=== PATIENT | male | born 1975 | race Caucasian/White ===

== ENCOUNTER 2017-11-08 08:37 | Emergency (ER) | payer OTHER ==
[2017-11-08 08:37] VITALS: BMI 27.4
[2017-11-08 08:46] VITALS: RESP 18
[2017-11-08] MEDS ORDERED: Naproxen 550 mg Tab PO STA (09:29)
[2017-11-08] MEDS ORDERED: Naproxen 550 mg Tab PO ONE (09:33)
--- NOTE | 2017-11-08 10:05 | C.PDOC ---
History Of Present Illness 42 y/o male presents to the ED c/o nonproductive cough, runny nose, upper back pain for 2-3 days. The patient states that last night he took Advil for relief last night. The patient denies fever, sore throat, ear and abdominal pain. Time Seen by Provider: 11/08/17 09:13 Chief Complaint (Nursing): Flu-like Symptoms History Per: Patient History/Exam Limitations: no limitations Onset/Duration Of Symptoms: Days Current Symptoms Are (Timing): Still Present Associated Symptoms: Cough (nonproductive). denies: Fever, Sore Throat, Vomiting, Diarrhea Additional History Per: Patient Past Medical History Reviewed: Historical Data, Nursing Documentation, Vital Signs Vital Signs: Last Vital Signs Temp 97.9 F 11/08/17 10:10 Pulse 88 11/08/17 10:10 Resp 18 11/08/17 10:10 BP 126/74 11/08/17 10:10 Pulse Ox 97 11/08/17 10:50 Surgical History: Appendectomy Family History: States: No Known Family Hx - Social History Hx Tobacco Use: No Hx Alcohol Use: Yes Hx Substance Use: No - Immunization History Hx Tetanus Toxoid Vaccination: No Hx Influenza Vaccination: No Hx Pneumococcal Vaccination: No Review Of Systems Except As Marked, All Systems Reviewed And Found Negative. Constitutional: Negative for: Fever ENT: Positive for: Nose Discharge. Negative for: Ear Pain, Throat Pain Cardiovascular: Negative for: Chest Pain Respiratory: Positive for: Cough. Negative for: Shortness of Breath Gastrointestinal: Negative for: Nausea, Abdominal Pain, Diarrhea Musculoskeletal: Positive for: Back Pain (upper ). Negative for: Neck Pain Skin: Negative for: Rash Physical Exam - Physical Exam Appears: Non-toxic, No Acute Distress Skin: Warm, Dry Head: Atraumatic, Normacephalic Eye(s): bilateral: Normal Inspection Ear(s): Bilateral: Normal Oral Mucosa: Moist Throat: No Erythema Neck: Supple Chest: Symmetrical Cardiovascular: Rhythm Regular Respiratory: Normal Breath Sounds, No Rales, No Rhonchi, No Wheezing Gastrointestinal/Abdominal: Soft, No Tenderness, No Guarding, No Rebound Back: No CVA Tenderness, No Vertebral Tenderness Extremity: Capillary Refill (2<sec.) Neurological/Psych: Oriented x3, Normal Speech, Other (speaking in full sentences ) Gait: Steady ED Course And Treatment O2 Sat by Pulse Oximetry: 97 (RA) - Radiology CXR: Viewed By Me Progress Note: Chest x- ray was administered to rule out Pneumonia. The results were negative. Upon reassessment, the patient is comfortable and aferbile.The patient is RX Naproxen and Tessalon for home. The patient is advised to have a follow up with his PCP for further evaluation. Medical Decision Making Medical Decision Making: Impression: No focal infiltrate or effusion. Disposition Counseled Patient/Family Regarding: Studies Performed, Diagnosis, Need For Followup, Rx Given - Disposition Referrals: Dino Flaherty MD [Staff Provider] - Disposition: HOME/ ROUTINE Disposition Time: 10:05 Condition: STABLE Additional Instructions: FOLLOW UP WITH YOUR DOCTOR IN 1-2 DAYS USE MEDICATIONS NEEDED RETURN TO ER IF SYMPTOMS WORSEN Prescriptions: Benzonatate [Tessalon Perles] 100 mg PO BID PRN #20 sgl PRN Reason: Cough Cyclobenzaprine [Cyclobenzaprine HCl] 10 mg PO BID PRN #15 tab PRN Reason: Muscle Spasm Naproxen 375 mg PO BID PRN #20 tablet PRN Reason: pain Instructions: Upper Respiratory Infection (ED), Viral Syndrome (ED) Forms: [facility] (Micronesian), Work Excuse Print Language: BERMUDIAN - POA Present On Arrival: None - Clinical Impression Clinical Impression: Viral upper respiratory infection, Upper back pain - Scribe Statement The provider has reviewed the documentation as recorded by the Scribe Celeste Leach
--- NOTE | 2017-11-08 10:09 | RAD ---
Chest x-ray two views History: Cough and back pain. Comparison: None available. Findings: No focal infiltrate or effusion. Heart size within normal limits. Impression: No focal infiltrate or effusion.
[2017-11-08 10:16] VITALS: BP 126/74; PULSE 88; TEMP 97.9
[2017-11-08 10:38] VITALS: O2SAT 97
== END 2017-11-08 10:17 | disposition home or self-care (01) ==
LOC: C.ER 08:37
DX: J06.9 Acute upper respiratory infection, unspecified (principal); M54.89 Other dorsalgia